=== PATIENT | female | born 2000 | race African-American/Black ===

== ENCOUNTER 2023-08-24 01:02 | Emergency (ER) | payer OTHER, SELFPAY ==
[2023-08-24] MEDS ORDERED: Ketorolac Tromethamine 30 MG/ML VIAL ONE (01:37)
== END 2023-08-24 02:00 | disposition home or self-care (01) ==
LOC: ERS 01:02
DX: S39.012A Strain of muscle, fascia and tendon of lower back, initial encounter (principal); X50.0XXA Overexertion from strenuous movement or load, initial encounter
CPT/HCPCS: 96372; 99283; J1885